=== PATIENT | female | born 1995 | race American Indian/Alaskan Native ===

== ENCOUNTER 2018-04-12 00:46 | Emergency (ER) | payer OTHER, SELFPAY ==
[2018-04-12] MEDS ORDERED: NA CHLORIDE 0.9% 1,000 ML ONE ×2 (01:29→03:34)
[2018-04-12] MEDS ORDERED: KETOROLAC 30 MG/ML INJ ONE (02:00)
[2018-04-12] MEDS ORDERED: PROMETHAZINE 25 MG/ML VIAL ONE (02:00)
[2018-04-12] MEDS ORDERED: PANTOPRAZOLE 40 MG INJ ONE (02:00)
[2018-04-12 02:16] LABS: Absolute Lymphocytes (CBC) 2.3 K/uL (0.7-4.9); Absolute Monocytes 0.4 K/uL (0.1-1.3); Absolute Neutrophil 4.2 K/uL (1.8-8.0); Basophils % 0.5 % (0-1.3); Eosinophils % 1.3 % (0-4.4); Hematocrit 38.1 % (36.0-45.0); Lymphocytes % 32.9 % (15.3-44.8); MCH 29.7 pg (27.0-35.0); MCV 86.2 fL (80-100); MPV 9.3 fL (7.6-11.3); Monocytes % 5.6 % (3.3-12.3); RBC Red Blood Cell Count 4.42 M/uL (3.86-4.86)
[2018-04-12 02:27] LABS: ALT/SGPT 30 U/L (12-78); AST/SGOT 12 U/L (15-37); Albumin 3.9 g/dL (3.4-5.0); Alkaline Phosphatase 59 U/L (45-117); BUN Blood Urea Nitrogen 17 mg/dL (7-18); Bicarbonate 23 mmol/L (21-32); Bilirubin Direct < 0.1 mg/dL (0-0.2); Bilirubin Total 0.2 mg/dL (0.2-1.0); Glucose Level 95 mg/dL (74-106); Lipase 307 U/L (73-393); Potassium 3.8 mmol/L (3.5-5.1); Protein, Total 8.1 g/dL (6.4-8.2); Sodium Level 141 mmol/L (136-145)
--- NOTE | 2018-04-12 03:27 | EDPHYS ---
Physician Documentation [facility] Name: Regina Gonzalez Age: 22 yrs Sex: Female : 1995 Arrival Date: 04/12/2018 Time: 00:46 Bed 18 Private MD: ED Physician Toi Rodriguez HPI: 04/12 01:51 This 22 yrs old Other Female presents to ER via Ambulatory with complaints of Vomiting, snw Weakness. 01:51 The patient presents to the emergency department with nausea, vomiting, diarrhea, snw abdominal pain. Onset: The symptoms/episode began/occurred suddenly, 4 day(s) ago, and became persistent. Possible causes: unknown, sick contacts, none. Associated signs and symptoms: The patient has no apparent associated signs or symptoms. Severity of symptoms: At their worst the symptoms were moderate. The patient has not experienced similar symptoms in the past. It is unknown whether or not the patient has recently seen a physician. pt with recent , not . 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 - Social history:: Smoking status: Patient uses tobacco products, denies chronic smoking, but will smoke occasionally. - Ebola Screening: : No symptoms or risks identified at this time. ROS: 01:50 Constitutional: Negative for fever, chills, and weight loss, Eyes: Negative for injury, snw pain, redness, and discharge, ENT: Negative for injury, pain, and discharge, Neck: Negative for injury, pain, and swelling, Cardiovascular: Negative for chest pain, palpitations, and edema, Respiratory: Negative for shortness of breath, cough, wheezing, and pleuritic chest pain. 01:50 Back: Negative for injury and pain, : Negative for injury, bleeding, discharge, and swelling, MS/Extremity: Negative for injury and deformity, Skin: Negative for injury, rash, and discoloration. 01:50 Abdomen/GI: Positive for abdominal pain, nausea, vomiting, and diarrhea. 01:50 Neuro: Positive for dizziness. Exam: 01:51 Constitutional: This is a well developed, well nourished patient who is awake, alert, snw and in no acute distress. Head/Face: Normocephalic, atraumatic. Eyes: Pupils equal round and reactive to light, extra-ocular motions intact. Lids and lashes normal. Conjunctiva and sclera are non-icteric and not injected. Cornea within normal limits. Periorbital areas with no swelling, redness, or edema. ENT: Nares patent. No nasal discharge, no septal abnormalities noted. Tympanic membranes are normal and external auditory canals are clear. Oropharynx with no redness, swelling, or masses, exudates, or evidence of obstruction, uvula midline. Mucous membranes moist. Neck: Trachea midline, no thyromegaly or masses palpated, and no cervical lymphadenopathy. Supple, full range of motion without nuchal rigidity, or vertebral point tenderness. No Meningismus. Chest/axilla: Normal chest wall appearance and motion. Nontender with no deformity. No lesions are appreciated. Cardiovascular: Regular rate and rhythm with a normal S1 and S2. No gallops, murmurs, or rubs. Normal PMI, no JVD. No pulse deficits. Respiratory: Lungs have equal breath sounds bilaterally, clear to auscultation and percussion. No rales, rhonchi or wheezes noted. No increased work of breathing, no retractions or nasal flaring. Abdomen/GI: Soft, non-tender, with normal bowel sounds. No distension or tympany. No guarding or rebound. No evidence of tenderness throughout. Back: No spinal tenderness. No costovertebral tenderness. Full range of motion. Skin: Warm, dry with normal turgor. Normal color with no rashes, no lesions, and no evidence of cellulitis. MS/ Extremity: Pulses equal, no cyanosis. Neurovascular intact. Full, normal range of motion. Neuro: Awake and alert, GCS 15, oriented to person, place, time, and situation. Cranial nerves II-XII grossly intact. Motor strength 5/5 in all extremities. Sensory grossly intact. Cerebellar exam normal. Normal gait. Vital Signs: 01:01 BP 150 / 100; Pulse 108; Resp 18; Temp 99(O); Pulse Ox 98% on R/A; Weight 99.79 kg; lp1 Height 5 ft. 4 in. (162.56 cm); Pain 3/10; 02:55 BP 150 / 80; Pulse 72; Resp 18; Pulse Ox 99% ; ea 02:58 BP 151 / 80; Pulse 78; Resp 18; Pulse Ox 99% ; ea 03:50 BP 140 / 78; Pulse 80; Resp 18; Pulse Ox 98% on R/A; ea 04:40 BP 138 / 70; Pulse 78; Resp 18; Temp 98; Pulse Ox 99% on R/A; Pain 0/10; ea 01:01 Body Mass Index 37.76 (99.79 kg, 162.56 cm) lp1 MDM: 00:54 Patient medically screened. denys 03:28 Data reviewed: vital signs, nurses notes. Data interpreted: Pulse oximetry: on room air snw is 99 %. Interpretation: normal. Counseling: I had a detailed discussion with the patient and/or guardian regarding: the historical points, exam findings, and any diagnostic results supporting the discharge/admit diagnosis, the presence of at least one elevated blood pressure reading (>120/80) during this emergency department visit, lab results, the need for outpatient follow up, to return to the emergency department if symptoms worsen or persist or if there are any questions or concerns that arise at home. Response to treatment: the patient's symptoms have mildly improved after treatment, and as a result, I will administer IV fluids, NS bolus, repeat. 10 00:49 Order name: Urine Culture snw 04/12 00:49 Order name: Urine Microscopic Only; Complete Time: 15:18 snw 04/12 01:02 Order name: Basic Metabolic Panel; Complete Time: 02:32 snw 04/12 01:02 Order name: CBC with Diff; Complete Time: 02:22 snw 04/12 01:02 Order name: Creatinine for Radiology; Complete Time: 02:32 snw 04/12 01:02 Order name: Hepatic Function; Complete Time: 02:32 snw 04/12 00:49 Order name: Urine Dipstick-Ancillary (obtain specimen); Complete Time: 03:17 snw 04/12 01:02 Order name: Lipase; Complete Time: 02:32 snw 04/12 03:18 Order name: Urine Dipstick--Ancillary (enter results); Complete Time: 15:18 ms 04/12 00:52 Order name: Urine Test (obtain specimen); Complete Time: 03:17 snw 04/12 01:02 Order name: IV Saline Lock; Complete Time: :48 snw 04/12 01:02 Order name: Labs collected and sent; Complete Time: :48 snw Administered Medications: 01:26 Drug: NS 0.9% 1000 ml Route: IV; Rate: 1 bolus; Site: right antecubital; ea 02:58 Follow up: Response: No adverse reaction; IV Status: Completed infusion; IV Intake: ea 1000ml 02:10 Drug: ProTONIX 40 mg Route: IVP; Site: right antecubital; ea 02:58 Follow up: Response: No adverse reaction ea 02:10 Drug: Phenergan 12.5 mg Route: IVP; Site: right antecubital; ea 02:58 Follow up: BP 151 / 80; Pulse 78 bpm; Resp 18 bpm; Pulse Ox 99% ea 03:16 Drug: TORadol 30 mg Route: IVP; Site: right antecubital; ea 04:40 Follow up: Response: No adverse reaction; Pain is decreased ea 03:29 Drug: NS 0.9% 1000 ml Route: IV; Rate: 1 bolus; Site: right antecubital; ao 04:40 Follow up: Response: No adverse reaction; IV Status: Completed infusion; IV Intake: ea 1000ml Disposition: 07:27 Co-signature as Attending Physician, Toi Rodriguez MD I agree with the assessment and denys plan of care. Disposition: 04/12/18 03:26 Discharged to Home. Impression: Vomiting, unspecified, Diarrhea, unspecified, Volume depletion. - Condition is Stable. - Discharge Instructions: Food Choices to Help Relieve Diarrhea, Adult, Diarrhea, Adult, Clear Liquid Diet, Adult, Nausea and Vomiting, Adult, Rehydration, Adult. - Prescriptions for Bentyl 20 mg Oral Tablet - take 1 tablet by ORAL route every 6 hours As needed; 20 tablet. Zofran 4 mg Oral Tablet - take 1 tablet by ORAL route every 12 hours As needed; 20 tablet. - Work release form, Medication Reconciliation Form, Thank You Letter, Antibiotic Education, Prescription Opioid Use form. - Follow up: Private Physician; When: 2 - 3 days; Reason: Recheck today's complaints, Continuance of care, Re-evaluation by your physician. Follow up: Emergency Department; When: As needed; Reason: Worsening of condition. Signatures: Dispatcher [employer] EDIA Toi Rodriguez MD MD cha Therrien, Shelly, SECURITIES CLERK-C SECURITIES CLERK-Csnw Noemi Leach, RN RN lp1 Arjun Harden, RN RN ao Alisha Price, RN RN ea Corrections: (The following items were deleted from the chart) 04:44 03:26 04/12/2018 03:26 Discharged to Home. Impression: Vomiting, unspecified; Diarrhea, ea unspecified; Volume depletion. Condition is Stable. Discharge Instructions: Food Choices to Help Relieve Diarrhea, Adult, Diarrhea, Adult, Clear Liquid Diet, Adult, Nausea and Vomiting, Adult, Rehydration, Adult. Prescriptions for Bentyl 20 mg Oral Tablet - take 1 tablet by ORAL route every 6 hours As needed; 20 tablet, Zofran 4 mg Oral Tablet - take 1 tablet by ORAL route every 12 hours As needed; 20 tablet. and Forms are Work release form, Medication Reconciliation Form, Thank You Letter, Antibiotic Education, Prescription Opioid Use. Follow up: Private Physician; When: 2 - 3 days; Reason: Recheck today's complaints, Continuance of care, Re-evaluation by your physician. Follow up: Emergency Department; When: As needed; Reason: Worsening of condition. snw
--- NOTE | 2018-04-12 03:27 | ER ---
Nurse's Notes [facility] Name: Regina Gonzalez Age: 22 yrs Sex: Female : 1995 Arrival Date: 04/12/2018 Time: 00:46 Bed 18 Private MD: Diagnosis: Vomiting, unspecified;Diarrhea, unspecified;Volume depletion Presentation: 04/12 01:01 Presenting complaint: Patient states: Vomiting x 4-5 days, states feeling "like I might lp1 pass out at any time"; denies any diarrhea, fever. Transition of care: patient was not received from another setting of care. Onset of symptoms was April 12, 2018. Risk Assessment: Do you want to hurt yourself or someone else? Patient reports no desire to harm self or others. Initial Sepsis Screen: Does the patient meet any 2 criteria? No. Patient's initial sepsis screen is negative. Does the patient have a suspected source of infection? No. Patient's initial sepsis screen is negative. Care prior to arrival: None. 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 - Social history:: Smoking status: Patient uses tobacco products, denies chronic smoking, but will smoke occasionally. - Ebola Screening: : No symptoms or risks identified at this time. Screenin:02 Abuse screen: Denies threats or abuse. Denies injuries from another. Nutritional lp1 screening: No deficits noted. Tuberculosis screening: No symptoms or risk factors identified. Fall Risk None identified. Assessment: 01:15 General: Appears in no apparent distress. Behavior is calm, cooperative, appropriate ea for age. Pain: Denies pain. Neuro: Level of Consciousness is awake, alert, obeys commands, Oriented to person, place, time, situation, Appropriate for age. Cardiovascular: Heart tones S1 S2 present Patient's skin is warm and dry. Respiratory: Airway is patent Respiratory effort is even, unlabored, Respiratory pattern is regular, symmetrical, Breath sounds are clear bilaterally. GI: Abdomen is non-distended, Bowel sounds present X 4 quads. Derm: Skin is pink, warm \\T\\ dry. 02:55 Reassessment: Patient and/or family updated on plan of care and expected duration. Pain ea level reassessed. Patient is alert, oriented x 3, equal unlabored respirations, skin warm/dry/pink. 03:50 Reassessment: Patient and/or family updated on plan of care and expected duration. Pain ea level reassessed. Patient is alert, oriented x 3, equal unlabored respirations, skin warm/dry/pink. Awaiting on IV fluids to complete. 04:38 Reassessment: Patient and/or family updated on plan of care and expected duration. Pain ea level reassessed. Patient is alert, oriented x 3, equal unlabored respirations, skin warm/dry/pink. Discharge instructions given to patient, verbalized the understanding of instruction. Vital Signs: 01:01 BP 150 / 100; Pulse 108; Resp 18; Temp 99(O); Pulse Ox 98% on R/A; Weight 99.79 kg; lp1 Height 5 ft. 4 in. (162.56 cm); Pain 3/10; 02:55 BP 150 / 80; Pulse 72; Resp 18; Pulse Ox 99% ; ea 02:58 BP 151 / 80; Pulse 78; Resp 18; Pulse Ox 99% ; ea 03:50 BP 140 / 78; Pulse 80; Resp 18; Pulse Ox 98% on R/A; ea 04:40 BP 138 / 70; Pulse 78; Resp 18; Temp 98; Pulse Ox 99% on R/A; Pain 0/10; ea 01:01 Body Mass Index 37.76 (99.79 kg, 162.56 cm) lp1 ED Course: 00:30 Inserted saline lock: 18 gauge in right antecubital area, using aseptic technique. ea Blood collected. 00:46 Patient arrived in ED. ds1 00:46 Scarlet Soria FNP-C [facility]. snw 00:46 Toi Rodriguez MD is Attending Physician. snw 01:01 Triage completed. lp1 01:02 Arm band placed on left wrist. lp1 01:10 Alisha Price, BRANDON is Primary Nurse. ea 01:15 Patient has correct armband on for positive identification. Bed in low position. Call ea light in reach. Side rails up X2. 01:15 No provider procedures requiring assistance completed. ea 04:40 IV discontinued, intact, bleeding controlled, No redness/swelling at site. Pressure ea dressing applied. Administered Medications: 01:26 Drug: NS 0.9% 1000 ml Route: IV; Rate: 1 bolus; Site: right antecubital; ea 02:58 Follow up: Response: No adverse reaction; IV Status: Completed infusion; IV Intake: ea 1000ml 02:10 Drug: ProTONIX 40 mg Route: IVP; Site: right antecubital; ea 02:58 Follow up: Response: No adverse reaction ea 02:10 Drug: Phenergan 12.5 mg Route: IVP; Site: right antecubital; ea 02:58 Follow up: BP 151 / 80; Pulse 78 bpm; Resp 18 bpm; Pulse Ox 99% ea 03:16 Drug: TORadol 30 mg Route: IVP; Site: right antecubital; ea 04:40 Follow up: Response: No adverse reaction; Pain is decreased ea 03:29 Drug: NS 0.9% 1000 ml Route: IV; Rate: 1 bolus; Site: right antecubital; ao 04:40 Follow up: Response: No adverse reaction; IV Status: Completed infusion; IV Intake: ea 1000ml Intake: 02:58 IV: 1000ml; Total: 1000ml. ea 04:40 IV: 1000ml; Total: 2000ml. ea Outcome: 03:26 Discharge ordered by MD. snw 04:39 Discharged to home ambulatory, with family. ea 04:39 Condition: improved 04:39 Discharge instructions given to patient, Instructed on discharge instructions, follow up and referral plans. medication usage, Demonstrated understanding of instructions, follow-up care, medications, Prescriptions given X 2. 04:44 Patient left the ED. ea Signatures: Scarlet Soria, CONTROLLER MECHANIC-C CONTROLLER MECHANIC-CsnDebra Schmitt Laura RN RN lp1 Arjun Harden RN Alisha Machado RN RN ea
[2018-04-12 04:19] LABS: Urine Blood 3+ (NEG); Urine Glucose NEGATIVE (NEG); Urine Protein NEGATIVE (NEG); Urine Specific Gravity <1.005 (1.005-1.030)
[2018-04-12 04:20] LABS: Urine Culture Reflex Order NOT NEEDED
[2018-04-12 04:21] LABS: Urine Bacteria 20-50 /HPF (<20); Urine RBC <5 /HPF (NONE SEEN)
[2018-04-12 04:53] VITALS: BP 138/70; TEMP 98; O2SAT 99
== END 2018-04-12 04:44 | disposition home or self-care (01) ==
LOC: ER 00:46
DX: E86.9 Volume depletion, unspecified (principal); R19.7 Diarrhea, unspecified; Z72.0 Tobacco use
CPT/HCPCS: 36415; 80048; 80076; 81003; 81015; 83690; 85025; 87086; 87088; 96361; 96374; 96375; 99284; C9113; J2550; J7030

== ENCOUNTER 2018-04-13 17:24 | Emergency (ER) | payer OTHER ==
[2018-04-13] MEDS ORDERED: SUCRALFATE 1GM/10ML UCUP PO ONE (18:00)
--- NOTE | 2018-04-13 18:05 | RAD REPORT ---
EXAM DESCRIPTION: RAD - Chest Single View - 04/13/2018 5:57 pm CLINICAL HISTORY: CHEST PAIN Chest pain. COMPARISON: Chest Single View dated 04/27/2017 FINDINGS: Portable technique limits examination quality. The lungs are grossly clear. The heart is normal in size. No displaced fractures. IMPRESSION: No acute intrathoracic process suspected.
[2018-04-13 18:41] LABS: Absolute Lymphocytes (CBC) 1.6 K/uL (0.7-4.9); Absolute Monocytes 0.4 K/uL (0.1-1.3); Absolute Neutrophil 5.9 K/uL (1.8-8.0); Basophils % 0.4 % (0-1.3); Eosinophils % 0.7 % (0-4.4); MCH 29.5 pg (27.0-35.0); MCV 86.1 fL (80-100); MPV 8.7 fL (7.6-11.3); Monocytes % 4.9 % (3.3-12.3); RBC Red Blood Cell Count 4.29 M/uL (3.86-4.86)
[2018-04-13 19:05] LABS: BUN Blood Urea Nitrogen 9 mg/dL (7-18); Bicarbonate 25 mmol/L (21-32); Glucose Level 96 mg/dL (74-106); Potassium 3.8 mmol/L (3.5-5.1); Sodium Level 143 mmol/L (136-145); Thyroid Stimulating Hormone 0.737 uIU/mL (0.360-3.740); Troponin (Emerg Dept Use Only) < 0.02 ng/mL (0.0-0.045)
--- NOTE | 2018-04-13 19:08 | EDPHYS ---
Physician Documentation [facility] Name: Regina Gonzalez Age: 22 yrs Sex: Female : 1995 Arrival Date: 04/13/2018 Time: 17:25 Bed 8 Private MD: ED Physician Marvin Means HPI: 04/13 18:56 This 22 yrs old Other Female presents to ER via EMS with complaints of Chest Pain, gs Nausea/Vomiting. 18:56 The patient or guardian reports chest pain that is located primarily in the epigastric gs area. The pain radiates to chest. Associated signs and symptoms:. The chest pain is described as burning. Duration: The patient or guardian reports a single episode, that is still ongoing, but improving. Modifying factors: the symptoms are aggravated by breathing. Severity of pain: At its worst the pain was moderate in the emergency department the pain is unchanged. The patient has been recently seen by a physician: The patient has been recently seen at the [facility] Emergency Department, yesterday. Historical: - Allergies: 17:29 No Known Allergies; hb - Home Meds: 17:29 control [Active]; hb - PSHx: 17:29 Cholecystectomy; hb - Immunization history:: Adult Immunizations up to date. - Social history:: Smoking status: Patient/guardian denies using tobacco. - Ebola Screening: : No symptoms or risks identified at this time. ROS: 18:56 All other systems are negative. gs Exam: 18:56 Head/Face: Normocephalic, atraumatic. Eyes: Pupils equal round and reactive to light, gs extra-ocular motions intact. Lids and lashes normal. Conjunctiva and sclera are non-icteric and not injected. Cornea within normal limits. Periorbital areas with no swelling, redness, or edema. ENT: Nares patent. No nasal discharge, no septal abnormalities noted. Tympanic membranes are normal and external auditory canals are clear. Oropharynx with no redness, swelling, or masses, exudates, or evidence of obstruction, uvula midline. Mucous membranes moist. Neck: Trachea midline, no thyromegaly or masses palpated, and no cervical lymphadenopathy. Supple, full range of motion without nuchal rigidity, or vertebral point tenderness. No Meningismus. Chest/axilla: Normal chest wall appearance and motion. Nontender with no deformity. No lesions are appreciated. Cardiovascular: Regular rate and rhythm with a normal S1 and S2. No gallops, murmurs, or rubs. Normal PMI, no JVD. No pulse deficits. Respiratory: Lungs have equal breath sounds bilaterally, clear to auscultation and percussion. No rales, rhonchi or wheezes noted. No increased work of breathing, no retractions or nasal flaring. Abdomen/GI: Soft, non-tender, with normal bowel sounds. No distension or tympany. No guarding or rebound. No evidence of tenderness throughout. Back: No spinal tenderness. No costovertebral tenderness. Full range of motion. Skin: Warm, dry with normal turgor. Normal color with no rashes, no lesions, and no evidence of cellulitis. MS/ Extremity: Pulses equal, no cyanosis. Neurovascular intact. Full, normal range of motion. Neuro: Awake and alert, GCS 15, oriented to person, place, time, and situation. Cranial nerves II-XII grossly intact. Motor strength 5/5 in all extremities. Sensory grossly intact. Cerebellar exam normal. Normal gait. 18:56 Constitutional: The patient appears alert, awake. 18:56 ECG was reviewed by the Attending Physician. Vital Signs: 17:26 BP 174 / 101; Pulse 77; Resp 16; Temp 98.7(O); Pulse Ox 100% on R/A; Pain 5/10; hb 18:30 BP 140 / 96; Pulse 79; Resp 16; Pulse Ox 100% on R/A; hb 19:00 BP 140 / 89; Pulse 77; Resp 18; Pulse Ox 100% on R/A; lp1 19:30 BP 121 / 71; Pulse 73; Resp 19; Pulse Ox 99% on R/A; Pain 3/10; lp1 MDM: 17:51 Patient medically screened. gs 18:56 Differential diagnosis: coronary artery disease chest wall pain, gastroesophageal gs reflux disease (GERD), pulmonary embolus. Data reviewed: vital signs, nurses notes. Counseling: I had a detailed discussion with the patient and/or guardian regarding: the historical points, exam findings, and any diagnostic results supporting the discharge/admit diagnosis, the presence of at least one elevated blood pressure reading (>120/80) during this emergency department visit, the need for outpatient follow up. Response to treatment: the patient's symptoms have markedly improved after treatment, and as a result, I will discharge patient. Special discussion: I have referred the patient to see his PCP for further evaluation of high blood pressure. 04/13 17:50 Order name: Basic Metabolic Panel; Complete Time: 19:07 04/13 17:50 Order name: CBC with Diff; Complete Time: 18:55 04/13 17:50 Order name: Troponin (emerg Dept Use Only); Complete Time: 19:07 04/13 17:50 Order name: XRAY Chest (1 view); Complete Time: 18:24 04/13 17:50 Order name: D-Dimer; Complete Time: 18:55 04/13 17:50 Order name: TSH; Complete Time: 19:07 04/13 17:50 Order name: EKG; Complete Time: 17:51 04/13 17:50 Order name: Cardiac monitoring; Complete Time: 18:06 04/13 17:50 Order name: EKG - Nurse/Tech; Complete Time: 18:06 04/13 17:50 Order name: IV Saline Lock; Complete Time: 18:06 04/13 17:50 Order name: Labs collected and sent; Complete Time: 18:06 04/13 17:50 Order name: O2 Per Protocol; Complete Time: 18:06 04/13 17:50 Order name: O2 Sat Monitoring; Complete Time: 18:06 gs EC:56 Rate is 73 beats/min. Rhythm is regular. ND interval is normal. QRS interval is normal. gs No Q waves. T waves are Normal. No ST changes noted. Clinical impression: Normal ECG. Interpreted by me. Administered Medications: 18:10 Drug: CarafATE 1 grams Route: PO; hb Disposition: 04/13/18 19:08 Discharged to Home. Impression: Essential (primary) hypertension, Chest pain, unspecified. - Condition is Stable. - Discharge Instructions: Nonspecific Chest Pain, Managing Your Hypertension. - Prescriptions for Pepcid 20 mg Oral Tablet - take 1 tablet by ORAL route every 12 hours .; 60 tablet. Triamterene- Hydrochlorothiazid 37.5-25 mg Oral Tablet - take 1 tablet by ORAL route once daily; 15 tablet. - Medication Reconciliation Form, Thank You Letter, Antibiotic Education, Prescription Opioid Use form. - Follow up: Private Physician; When: 2 - 3 days; Reason: Re-evaluation by your physician. Signatures: Dispatcher [employer] EDNoemi Tee RN RN lp1 Juani Orosco RN RN Marvin Means MD MD gs Corrections: (The following items were deleted from the chart) 19:50 19:08 04/13/2018 19:08 Discharged to Home. Impression: Essential (primary) lp1 hypertension; Chest pain, unspecified. Condition is Stable. Forms are Medication Reconciliation Form, Thank You Letter, Antibiotic Education, Prescription Opioid Use. Follow up: Private Physician; When: 2 - 3 days; Reason: Re-evaluation by your physician. gs
--- NOTE | 2018-04-13 19:08 | ER ---
Nurse's Notes [facility] Name: Regina Gonzalez Age: 22 yrs Sex: Female : 1995 Arrival Date: 04/13/2018 Time: 17:25 Bed 8 Private MD: Diagnosis: Essential (primary) hypertension;Chest pain, unspecified Presentation: 04/13 17:26 Presenting complaint: EMS states: N/V x 1 week, chest pressure and mild SOB x 2-3 days. hb Transition of care: patient was not received from another setting of care. Onset of symptoms is unknown. Risk Assessment: Do you want to hurt yourself or someone else? Patient reports no desire to harm self or others. Initial Sepsis Screen: Does the patient meet any 2 criteria? No. Patient's initial sepsis screen is negative. Does the patient have a suspected source of infection? No. Patient's initial sepsis screen is negative. Care prior to arrival: None. 17:26 Method Of Arrival: EMS: [facility] hb 17:26 Acuity: COLIN 3 hb Historical: - Allergies: 17:29 No Known Allergies; hb - Home Meds: 17:29 control [Active]; hb - PSHx: 17:29 Cholecystectomy; hb - Immunization history:: Adult Immunizations up to date. - Social history:: Smoking status: Patient/guardian denies using tobacco. - Ebola Screening: : No symptoms or risks identified at this time. Screenin:29 Abuse screen: Denies threats or abuse. Denies injuries from another. Nutritional hb screening: No deficits noted. Tuberculosis screening: No symptoms or risk factors identified. Fall Risk None identified. Assessment: 17:30 General: Appears in no apparent distress. Behavior is calm, cooperative. Pain: Pain hb does not radiate. Pain currently is 5 out of 10 on a pain scale. Quality of pain is described as pressure, Pain began 2-3 days ago. Neuro: Level of Consciousness is awake, alert, obeys commands, Oriented to person, place, time, situation. Cardiovascular: Capillary refill < 3 seconds Patient's skin is warm and dry. Respiratory: Airway is patent Trachea midline Respiratory effort is even, unlabored, Respiratory pattern is regular, symmetrical, Breath sounds are clear bilaterally. GI: Reports nausea. : No signs and/or symptoms were reported regarding the genitourinary system. EENT: No signs and/or symptoms were reported regarding the EENT system. Derm: Skin is pink, warm \T\ dry. Musculoskeletal: No signs and/or symptoms reported regarding the musculoskeletal system. 18:30 Reassessment: Patient appears in no apparent distress at this time. No changes from hb previously documented assessment. Patient and/or family updated on plan of care and expected duration. Pain level reassessed. Patient is alert, oriented x 3, equal unlabored respirations, skin warm/dry/pink. 19:30 Reassessment: Patient appears in no apparent distress at this time. Patient is alert, lp1 oriented x 3, equal unlabored respirations, skin warm/dry/pink. Patient states feeling better. Vital Signs: 17:26 BP 174 / 101; Pulse 77; Resp 16; Temp 98.7(O); Pulse Ox 100% on R/A; Pain 5/10; hb 18:30 BP 140 / 96; Pulse 79; Resp 16; Pulse Ox 100% on R/A; hb 19:00 BP 140 / 89; Pulse 77; Resp 18; Pulse Ox 100% on R/A; lp1 19:30 BP 121 / 71; Pulse 73; Resp 19; Pulse Ox 99% on R/A; Pain 3/10; lp1 ED Course: 17:25 Patient arrived in ED. hb 17:28 Triage completed. hb 17:29 Arm band placed on right wrist. hb 17:30 Patient has correct armband on for positive identification. Placed in gown. Bed in low hb position. Call light in reach. Side rails up X 1. radiation monitor on. Pulse ox on. NIBP on. 17:35 Marvin Means MD is Attending Physician. gs 17:37 EKG done, by emergency care tech. reviewed by Marvin Means MD. sm3 17:57 XRAY Chest (1 view) In Process Unspecified. EDMS 17:57 X-ray completed. Portable x-ray completed in exam room. Patient tolerated procedure ml well. 18:00 Initial lab(s) drawn, by me, sent to lab. Inserted saline lock: 20 gauge in left dh3 antecubital area, using aseptic technique. Blood collected. 18:18 Juani Orosco, BRANDON is Primary Nurse. hb 18:32 Lab(s) recollected, by me, sent to lab. [facility] 19:49 No provider procedures requiring assistance completed. IV discontinued, No lp1 redness/swelling at site. Pressure dressing applied. Patient maintains SpO2 saturation greater than 95% on room air. Administered Medications: 18:10 Drug: CarafATE 1 grams Route: PO; hb Outcome: 19:08 Discharge ordered by . 19:49 Discharged to home via wheelchair, with family. [facility] 19:49 Condition: good 19:49 Discharge instructions given to patient, Instructed on discharge instructions, follow up and referral plans. medication usage, Demonstrated understanding of instructions, follow-up care, medications, Prescriptions given X 2. 19:50 Patient left the ED. 1 Signatures: Dispatcher [employer] EDMS Anne Farnsworth Laura, BRANDON RN [facility] Juani Orosco, BRANDON TAYLOR Ryan, Nereyda 3 Marvin Means MD MD Gwendolyn Espitia 3
[2018-04-13 19:54] VITALS: TEMP 98.7
[2018-04-13 19:57] VITALS: BP 121/71; O2SAT 99
--- NOTE | 2018-04-14 07:54 | EKG ---
Test Date: 2018-04-13 Test Time: 17:30:24 Water Treatment Technician: NEIL MEASUREMENT RESULTS: Intervals: Rate: 73 NV: 128 QRSD: 78 QT: 364 QTc: 401 [place]: P: 28 NV: 128 QRS: -3 T: -2 INTERPRETIVE STATEMENTS: Normal sinus rhythm Normal ECG Compared to ECG 04/27/2017 21:26:14 No significant changes Electronically Signed On 04-14-18 07:54:09 CDT by Gurdeep Herman
== END 2018-04-13 19:50 | disposition home or self-care (01) ==
LOC: ER 17:24
DX: I10 Essential (primary) hypertension (principal)
CPT/HCPCS: 36415; 71045; 80048; 84443; 84484; 85025; 85379; 93005; 99285

== ENCOUNTER 2018-04-16 19:01 | Emergency (ER) | payer OTHER ==
[2018-04-16] MEDS ORDERED: NA CHLORIDE 0.9% 1,000 ML ONE (19:52)
[2018-04-16 19:57] LABS: Absolute Lymphocytes (CBC) 2.5 K/uL (0.7-4.9); Absolute Monocytes 0.5 K/uL (0.1-1.3); Absolute Neutrophil 3.9 K/uL (1.8-8.0); Basophils % 0.7 % (0-1.3); Eosinophils % 1.4 % (0-4.4); Hematocrit 42.5 % (36.0-45.0); Lymphocytes % 35.7 % (15.3-44.8); MCH 29.5 pg (27.0-35.0); MPV 8.7 fL (7.6-11.3); Monocytes % 7.6 % (3.3-12.3)
[2018-04-16 20:00] LABS: Protime INR 1.16
[2018-04-16 20:17] LABS: ALT/SGPT 38 U/L (12-78); AST/SGOT 12 U/L (15-37); Albumin 4.3 g/dL (3.4-5.0); Alkaline Phosphatase 66 U/L (45-117); BUN Blood Urea Nitrogen 15 mg/dL (7-18); Bicarbonate 20 mmol/L (21-32); Bilirubin Direct < 0.1 mg/dL (0-0.2); Bilirubin Total 0.3 mg/dL (0.2-1.0); Glucose Level 90 mg/dL (74-106); Lipase 155 U/L (73-393); Magnesium 2.5 mg/dL (1.8-2.4); NT PRO-BNP 7 pg/mL (<125); Potassium 3.6 mmol/L (3.5-5.1); Protein, Total 8.6 g/dL (6.4-8.2); Sodium Level 138 mmol/L (136-145); Troponin (Emerg Dept Use Only) < 0.02 ng/mL (0.0-0.045)
[2018-04-16 21:02] LABS: Urine Blood NEGATIVE (NEG); Urine Glucose NEGATIVE (NEG); Urine Protein 1+ (NEG)
--- NOTE | 2018-04-16 21:40 | RAD REPORT ---
EXAM DESCRIPTION: CT - Chest For Pe Angio - 04/16/2018 9:10 pm CLINICAL HISTORY: Chest pain, tachycardia, shortness of breath COMPARISON: Chest films same date, PE study April 2017 TECHNIQUE: Dynamically enhanced 3 mm thick images of the chest were obtained during administration o f approximately 150mL Isovue 370 IV contrast. Coronal and oblique MIP reconstruction images were gene rated and reviewed. Exam utilizes a protocol to evaluate the pulmonary arterial tree. All CT scans are performed using dose optimization technique as appropriate and may include automated exposure control or mA/KV adjustment according to patient size. FINDINGS: No pulmonary emboli are identified. The aorta as imaged shows no acute or suspicious finding. No pericardial thickening or effusion. No infiltrate or mass in the lung parenchyma. No pleural effusion or pleural thickening. No mediastinal or hilar suspicious masses. No chest wall masses or abnormal axillary lymphadenopathy. IMPRESSION: No pulmonary emboli identified. No other significant or suspicious findings.
--- NOTE | 2018-04-16 22:21 | RAD REPORT ---
EXAM DESCRIPTION: RAD - Chest Single View - 04/16/2018 9:44 pm CLINICAL HISTORY: Chest pain COMPARISON: April 13 TECHNIQUE: AP portable chest image was obtained 2003 hours . FINDINGS: Lungs are clear. Heart and vasculature are normal. No measurable pleural effusion and no p neumothorax. No acute bony abnormality seen. No acute aortic findings suspected. IMPRESSION: No acute cardiopulmonary process. No significant interval change.
[2018-04-16 23:59] LABS: Barbiturates NEGATIVE (NEGATIVE); Benzodiazepines NEGATIVE (NEGATIVE); Cocaine NEGATIVE (NEGATIVE); METHAMPHETAM NEGATIVE (NEGATIVE); Methadone NEGATIVE (NEGATIVE); Opiates NEGATIVE (NEGATIVE); Phencyclidine NEGATIVE (NEGATIVE); THC Cannibis NEGATIVE (NEGATIVE)
--- NOTE | 2018-04-17 00:14 | EDPHYS ---
Physician Documentation [facility] Name: Regina Gonzalez Age: 22 yrs Sex: Female : 1995 Arrival Date: 04/16/2018 Time: 19:02 Bed 16 Private MD: Nitin Velasquez ED Physician Marvin Means HPI: 04/17 00:05 This 22 yrs old Other Female presents to ER via Ambulatory with complaints of gs Palpitations. 00:05 The patient presents with a history of heart racing. Onset: The symptoms/episode gs began/occurred today. Duration: The patient or guardian reports a single episode, that is still ongoing. Modifying factors: The symptoms are aggravated by nothing. The symptoms are alleviated by nothing. Associated signs and symptoms: Pertinent positives: chest pain, Pertinent negatives: cough, fever. Severity of symptoms: At their worst the symptoms were moderate in the emergency department the symptoms are unchanged. The patient has experienced similar episodes in the past, a few times. The patient has been recently seen at the [facility] Emergency Department, last week. PERL DEVELOPER: 04/16 19:10 LMP 04/12/2018 aj Historical: - Allergies: 19:10 No Known Allergies; aj - Home Meds: 19:10 None [Active]; aj - PMHx: 19:10 Hypertension; aj - PSHx: 19:10 Cholecystectomy; aj - Immunization history:: Adult Immunizations up to date. - Social history:: Smoking status: Patient/guardian denies using tobacco. - Ebola Screening: : Patient negative for fever greater than or equal to 101.5 degrees Fahrenheit, and additional compatible Ebola Virus Disease symptoms Patient denies exposure to infectious person Patient denies travel to an Ebola-affected area in the 21 days before illness onset No symptoms or risks identified at this time. ROS: 04/17 00:05 All other systems are negative. gs Exam: 00:05 Head/Face: Normocephalic, atraumatic. Eyes: Pupils equal round and reactive to light, gs extra-ocular motions intact. Lids and lashes normal. Conjunctiva and sclera are non-icteric and not injected. Cornea within normal limits. Periorbital areas with no swelling, redness, or edema. ENT: Nares patent. No nasal discharge, no septal abnormalities noted. Tympanic membranes are normal and external auditory canals are clear. Oropharynx with no redness, swelling, or masses, exudates, or evidence of obstruction, uvula midline. Mucous membranes moist. Neck: Trachea midline, no thyromegaly or masses palpated, and no cervical lymphadenopathy. Supple, full range of motion without nuchal rigidity, or vertebral point tenderness. No Meningismus. Chest/axilla: Normal chest wall appearance and motion. Nontender with no deformity. No lesions are appreciated. Respiratory: Lungs have equal breath sounds bilaterally, clear to auscultation and percussion. No rales, rhonchi or wheezes noted. No increased work of breathing, no retractions or nasal flaring. Abdomen/GI: Soft, non-tender, with normal bowel sounds. No distension or tympany. No guarding or rebound. No evidence of tenderness throughout. Back: No spinal tenderness. No costovertebral tenderness. Full range of motion. Skin: Warm, dry with normal turgor. Normal color with no rashes, no lesions, and no evidence of cellulitis. MS/ Extremity: Pulses equal, no cyanosis. Neurovascular intact. Full, normal range of motion. Neuro: Awake and alert, GCS 15, oriented to person, place, time, and situation. Cranial nerves II-XII grossly intact. Motor strength 5/5 in all extremities. Sensory grossly intact. Cerebellar exam normal. Normal gait. 00:05 Constitutional: The patient appears alert, awake. 00:05 Cardiovascular: Rate: tachycardic, Rhythm: regular, Pulses: no pulse deficits are appreciated. 00:05 ECG was reviewed by the Attending Physician. Vital Signs: 04/16 19:10 BP 151 / 104; Pulse 146; Resp 20; Temp 98.7; Pulse Ox 97% on R/A; Weight 95.71 kg; aj Height 5 ft. 4 in. (162.56 cm); 19:15 BP 135 / 99; Pulse 136; Resp 20 S; Pulse Ox 97% on R/A; cc3 20:08 BP 138 / 90; Pulse 105; Resp 20 S; Pulse Ox 100% on R/A; cc3 21:33 BP 120 / 79; Pulse 113; Resp 15 S; Pulse Ox 98% on R/A; cc3 22:45 BP 123 / 86; Pulse 105; Resp 16 S; Pulse Ox 99% on R/A; cc3 23:30 BP 124 / 80; Pulse 104; Resp 19 S; Pulse Ox 98% on R/A; 3 04/17 00:30 BP 112 / 83; Pulse 103; Resp 17 S; Pulse Ox 98% on R/A; Pain 0/10; 3 04/16 19:10 Body Mass Index 36.22 (95.71 kg, 162.56 cm) aj MDM: 04/16 19:24 Patient medically screened. 04/17 00:05 Differential diagnosis: arrythmia, dehydration, stress disorder. Data reviewed: vital gs signs, nurses notes. Response to treatment: the patient's symptoms have markedly improved after treatment, and as a result, I will discharge patient. 04/16 19:40 Order name: Basic Metabolic Panel; Complete Time: 20:33 04/16 19:40 Order name: CBC with Diff; Complete Time: 20:33 04/16 19:40 Order name: LFT's; Complete Time: 20:33 04/16 19:40 Order name: Magnesium; Complete Time: 20:33 04/16 19:40 Order name: NT PRO-BNP; Complete Time: 20:33 04/16 19:40 Order name: PT-INR; Complete Time: 20:33 04/16 19:40 Order name: Troponin (emerg Dept Use Only); Complete Time: 20:33 04/16 19:40 Order name: XRAY Chest (1 view); Complete Time: 22:23 04/16 19:40 Order name: CT Chest For PE Angio; Complete Time: 22:23 04/16 19:41 Order name: Lipase; Complete Time: 20:33 04/16 20:53 Order name: Urine Dipstick--Ancillary (enter results); Complete Time: 21:07 04/16 20:53 Order name: Urine --Ancillary (enter results); Complete Time: 21:07 04/16 23:05 Order name: Urine Drug Screen; Complete Time: 00:05 04/16 19:40 Order name: EKG; Complete Time: 19:41 04/16 19:40 Order name: Cardiac monitoring; Complete Time: 19:43 04/16 19:40 Order name: EKG - Nurse/Tech; Complete Time: 19:43 04/16 19:40 Order name: IV Saline Lock; Complete Time: 19:43 gs 04/16 19:40 Order name: Labs collected and sent; Complete Time: 19:43 gs 04/16 19:40 Order name: O2 Per Protocol; Complete Time: 19:43 gs 04/16 19:40 Order name: O2 Sat Monitoring; Complete Time: 19:43 gs EC:05 Rate is 159 beats/min. Rhythm is regular. [place] interval is normal. QRS interval is gs normal. T waves are Normal. Clinical impression: Atrial Flutter. Interpreted by me. Administered Medications: 04/16 19:45 Drug: NS 0.9% 1000 ml Route: IV; Rate: 1 bolus; Site: left antecubital; cc3 21:00 Follow up: Response: No adverse reaction; IV Status: Completed infusion; IV Intake: cc3 1000ml 04/17 00:25 Drug: Metoprolol 25 mg Route: PO; cc3 00:43 Follow up: Response: No adverse reaction cc3 Disposition: 04/17/18 00:13 Discharged to Home. Impression: Palpitations, Typical atrial flutter. - Condition is Stable. - Discharge Instructions: Palpitations, Atrial Flutter. - Prescriptions for Metoprolol Tartrate 25 mg Oral Tablet - take 1 tablet by ORAL route 2 times per day with a meal; 30 tablet. - Medication Reconciliation Form, Thank You Letter, Antibiotic Education, Prescription Opioid Use form. - Follow up: Private Physician; When: 2 - 3 days; Reason: Re-evaluation by your physician. Signatures: Dispatcher [employer] [facility] Opal Almaraz RN RN aj Starr, Gregory, MD MD gs Cordel, Charlene cc3 Corrections: (The following items were deleted from the chart) 04/16 19:55 19:41 Abdomen Limited+US.RAD.BRZ ordered. [facility] 04/17 00:43 00:13 04/17/2018 00:13 Discharged to Home. Impression: Palpitations; Typical atrial cc3 flutter. Condition is Stable. Forms are Medication Reconciliation Form, Thank You Letter, Antibiotic Education, Prescription Opioid Use. Follow up: Private Physician; When: 2 - 3 days; Reason: Re-evaluation by your physician.
--- NOTE | 2018-04-17 00:14 | ER ---
Nurse's Notes [facility] Name: Regina Gonzalez Age: 22 yrs Sex: Female : 1995 Arrival Date: 04/16/2018 Time: 19:02 Bed 16 Private MD: Nitin Velasquez Diagnosis: Palpitations;Typical atrial flutter Presentation: 04/16 19:07 Presenting complaint: Patient states: "I have been having a rapid heart rate for a few aj days and my blood pressure has been going up, I have been here twice for it and saw my physician for it as well." Patient is tearful in triage and appears anxious. Denies chest pain. Transition of care: patient was not received from another setting of care. Onset of symptoms was March 29, 2018. Risk Assessment: Do you want to hurt yourself or someone else? Patient reports no desire to harm self or others. Initial Sepsis Screen: Does the patient meet any 2 criteria? HR > 90 bpm. Does the patient have a suspected source of infection? No. Patient's initial sepsis screen is negative. Care prior to arrival: None. 19:07 Method Of Arrival: Ambulatory 19:07 Acuity: COLIN 2 aj Triage Assessment: 19:10 General: Appears in no apparent distress. uncomfortable, Behavior is anxious, crying. aj Pain: Denies pain. Neuro: Level of Consciousness is awake, alert, obeys commands, Oriented to person, place, time, situation, Appropriate for age. Cardiovascular: Reports diaphoresis, lightheadedness, palpitations, shortness of breath, Capillary refill < 3 seconds in bilateral fingers Patient's skin is warm and dry. Respiratory: Airway is patent Respiratory effort is even, unlabored, Respiratory pattern is regular, symmetrical. GI: Reports diarrhea. Derm: Skin is intact, is healthy with good turgor, Skin is pink, warm \\T\\ dry. normal. [employer]PERVIS[employer] FABRICATION: 19:10 LMP 04/12/2018 aj Historical: - Allergies: 19:10 No Known Allergies; aj - Home Meds: 19:10 None [Active]; aj - PMHx: 19:10 Hypertension; aj - PSHx: 19:10 Cholecystectomy; aj - Immunization history:: Adult Immunizations up to date. - Social history:: Smoking status: Patient/guardian denies using tobacco. - Ebola Screening: : Patient negative for fever greater than or equal to 101.5 degrees Fahrenheit, and additional compatible Ebola Virus Disease symptoms Patient denies exposure to infectious person Patient denies travel to an Ebola-affected area in the 21 days before illness onset No symptoms or risks identified at this time. Screenin:10 Abuse screen: Denies threats or abuse. Denies injuries from another. Nutritional cc3 screening: No deficits noted. Tuberculosis screening: No symptoms or risk factors identified. Fall Risk Ambulatory Aid- None/Bed Rest/Nurse Assist (0 pts). Gait- Normal/Bed Rest/Wheelchair (0 pts) Mental Status- Oriented to own ability (0 pts). Assessment: 19:15 General: see triage assessment. cc3 19:15 Pain: Pain does not radiate. Quality of pain is described as heavy, Pain began cc3 intermittent several days back. 20:08 Reassessment: Patient appears in no apparent distress at this time. Patient and/or cc3 family updated on plan of care and expected duration. Pain level reassessed. Patient is alert, oriented x 3, equal unlabored respirations, skin warm/dry/pink. 21:20 Reassessment: Patient appears in no apparent distress at this time. Patient and/or cc3 family updated on plan of care and expected duration. Pain level reassessed. Patient is alert, oriented x 3, equal unlabored respirations, skin warm/dry/pink. Patient came back from CT scan department. 22:30 Reassessment: Patient appears in no apparent distress at this time. Patient and/or cc3 family updated on plan of care and expected duration. Pain level reassessed. Patient is alert, oriented x 3, equal unlabored respirations, skin warm/dry/pink. 23:45 Reassessment: Patient appears in no apparent distress at this time. Patient and/or cc3 family updated on plan of care and expected duration. Pain level reassessed. Patient is alert, oriented x 3, equal unlabored respirations, skin warm/dry/pink. 04/17 00:43 Reassessment: Patient appears in no apparent distress at this time. Patient and/or cc3 family updated on plan of care and expected duration. Pain level reassessed. Patient is alert, oriented x 3, equal unlabored respirations, skin warm/dry/pink. Dr. Means discharged the patient home with prescription given. IV cannula removed and patient left ER vitally stable by wheelchair with her family. Vital Signs: 04/16 19:10 BP 151 / 104; Pulse 146; Resp 20; Temp 98.7; Pulse Ox 97% on R/A; Weight 95.71 kg; aj Height 5 ft. 4 in. (162.56 cm); 19:15 BP 135 / 99; Pulse 136; Resp 20 S; Pulse Ox 97% on R/A; cc3 20:08 BP 138 / 90; Pulse 105; Resp 20 S; Pulse Ox 100% on R/A; cc3 21:33 BP 120 / 79; Pulse 113; Resp 15 S; Pulse Ox 98% on R/A; cc3 22:45 BP 123 / 86; Pulse 105; Resp 16 S; Pulse Ox 99% on R/A; cc3 23:30 BP 124 / 80; Pulse 104; Resp 19 S; Pulse Ox 98% on R/A; cc3 04/17 00:30 BP 112 / 83; Pulse 103; Resp 17 S; Pulse Ox 98% on R/A; Pain 0/10; cc3 04/16 19:10 Body Mass Index 36.22 (95.71 kg, 162.56 cm) aj ED Course: 04/16 19:02 Patient arrived in ED. am2 19:02 Nitin Velasquez MD is Private Physician. am2 19:09 Triage completed. aj 19:10 Arm band placed on right wrist. Patient placed in an exam room. aj 19:15 Patient has correct armband on for positive identification. Placed in gown. Bed in low cc3 position. Call light in reach. insulation board coater operator on. Pulse ox on. NIBP on. 19:15 Patient maintains SpO2 saturation greater than 95% on room air. cc3 19:24 Marvin Means MD is Attending Physician. gs 19:30 Inserted saline lock: 20 gauge in left antecubital area, using aseptic technique. Blood cc3 collected. 19:39 Lexy Sweeney is Primary Nurse. cc3 21:10 CT Chest For PE Angio In Process Unspecified. EDMS 21:45 XRAY Chest (1 view) In Process Unspecified. EDMS 04/17 00:45 No provider procedures requiring assistance completed. IV discontinued, intact, cc3 bleeding controlled, No redness/swelling at site. Pressure dressing applied. Administered Medications: 04/16 19:45 Drug: NS 0.9% 1000 ml Route: IV; Rate: 1 bolus; Site: left antecubital; cc3 21:00 Follow up: Response: No adverse reaction; IV Status: Completed infusion; IV Intake: cc3 1000ml 04/17 00:25 Drug: Metoprolol 25 mg Route: PO; cc3 00:43 Follow up: Response: No adverse reaction cc3 Intake: 04/16 21:00 IV: 1000ml; Total: 1000ml. cc3 Outcome: 04/17 00:13 Discharge ordered by . 00:42 Discharged to home via wheelchair, with family. cc3 00:42 Condition: stable 00:42 Discharge instructions given to patient, family, Instructed on discharge instructions, follow up and referral plans. medication usage, Demonstrated understanding of instructions, follow-up care, medications, Prescriptions given X 1. 00:43 Patient left the ED. cc3 Signatures: Dispatcher [employer] EDMS Opal Almaraz RN RN aj Moreno, Amanda am2 Starr, Gregory, MD MD gs Cordel, Charlene cc3 Corrections: (The following items were deleted from the chart) 04/16 21:39 19:15 Pain: Pain does not radiate. Pain began intermittent several days back cc3 cc3
[2018-04-17] MEDS ORDERED: METOPROLOL TAR 25 MG TAB ONE (00:33)
[2018-04-17 00:48] VITALS: TEMP 98.7
[2018-04-17 00:52] VITALS: BP 123/86; O2SAT 99
--- NOTE | 2018-04-18 10:11 | EKG ---
Test Date: 2018-04-16 Test Time: 19:24:31 Freezing Room Worker: SRI MEASUREMENT RESULTS: Intervals: Rate: 138 MN: 128 QRSD: 68 QT: 352 QTc: 533 [place]: P: 37 MN: 128 QRS: 12 T: 23 INTERPRETIVE STATEMENTS: Sinus tachycardia T wave abnormality, consider inferolateral ischemia Abnormal ECG Compared to ECG 04/13/2018 17:30:24 T-wave abnormality now present Possible ischemia now present Sinus rhythm no longer present Electronically Signed On 04-18-18 10:10:59 CDT by Gurdeep Herman
== END 2018-04-17 00:43 | disposition home or self-care (01) ==
LOC: ER 19:01
DX: I48.3 Typical atrial flutter (principal); I10 Essential (primary) hypertension
CPT/HCPCS: 36415; 71045; 71275; 80048; 80076; 80307; 81003; 81025; 83690; 83735; 83880; 84484; 85025; 85610; 93005; 96360; 99285; J7030; Q9967

== ENCOUNTER 2018-04-17 23:03 | Observation (INO) | payer OTHER ==
[2018-04-18] LABS: Absolute Lymphocytes (CBC) 2.3 K/uL (0.7-4.9); Absolute Monocytes 0.5 K/uL (0.1-1.3); Absolute Neutrophil 3.7 K/uL (1.8-8.0); Basophils % 0.7 % (0-1.3); Eosinophils % 1.7 % (0-4.4); Hematocrit 40.2 % (36.0-45.0); Lymphocytes % 35.1 % (15.3-44.8); MCH 29.2 pg (27.0-35.0); MCV 85.6 fL (80-100); Monocytes % 7.1 % (3.3-12.3)
[2018-04-18 00:13] LABS: BUN Blood Urea Nitrogen 12 mg/dL (7-18); Bicarbonate 22 mmol/L (21-32); Glucose Level 82 mg/dL (74-106); Potassium 3.9 mmol/L (3.5-5.1); Sodium Level 140 mmol/L (136-145)
--- NOTE | 2018-04-18 01:01 | ER ---
Nurse's Notes [facility] Name: Regina Gonzalez Age: 22 yrs Sex: Female : 1995 Arrival Date: 04/17/2018 Time: 23:04 Bed 14 Private MD: Diagnosis: Palpitations Presentation: 04/17 23:10 Presenting complaint: Patient states: that she continues to have on and off chest pain, fc dizziness and feeling light headed. Has been seen 3 times in the past 5 days. Is currently not taking any of the medications that had been prescribed for her including the triamit/hctz 37.5/25 mg. Transition of care: patient was not received from another setting of care. Onset of symptoms was April 2018. Risk Assessment: Do you want to hurt yourself or someone else? Patient reports no desire to harm self or others. Initial Sepsis Screen: Does the patient meet any 2 criteria? HR > 90 bpm. Yes Does the patient have a suspected source of infection? No. Patient's initial sepsis screen is negative. Care prior to arrival: None. 23:10 Method Of Arrival: Ambulatory 23:10 Acuity: COLIN 3 fc Triage Assessment: 23:15 General: Appears in no apparent distress. comfortable, Behavior is calm, cooperative, cc3 appropriate for age. Pain: Complains of pain in chest pain Quality of pain is described as heavy, Pain began since 5 days. EENT: No signs and/or symptoms were reported regarding the EENT system. Neuro: Level of Consciousness is awake, alert, obeys commands, Oriented to person, place, time, situation, Appropriate for age. Cardiovascular: Reports chest pain, lightheadedness, since 5 days. Respiratory: Airway is patent Respiratory effort is even, unlabored, Respiratory pattern is regular, symmetrical. GI: Abdomen is round non-distended. : No signs and/or symptoms were reported regarding the genitourinary system. Derm: No signs and/or symptoms reported regarding the dermatologic system. Musculoskeletal: Circulation, motion, and sensation intact. Range of motion: intact in all extremities. 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 - Social history:: Smoking status: Patient/guardian denies using tobacco. - Ebola Screening: : Patient negative for fever greater than or equal to 101.5 degrees Fahrenheit, and additional compatible Ebola Virus Disease symptoms Patient denies exposure to infectious person Patient denies travel to an Ebola-affected area in the 21 days before illness onset. Screenin/14 23:22 Abuse screen: Denies threats or abuse. Denies injuries from another. Nutritional fc screening: No deficits noted. Tuberculosis screening: No symptoms or risk factors identified. Fall Risk None identified. Assessment: 23:15 General: see triage assessment. cc3 23:15 Pain: Pain does not radiate. cc3 04/18 00:00 Reassessment: patient seen by Dr. Villarreal. cc3 01:01 Reassessment: Patient appears in no apparent distress at this time. Patient and/or cc3 family updated on plan of care and expected duration. Pain level reassessed. Patient is alert, oriented x 3, equal unlabored respirations, skin warm/dry/pink. patient for admission, awaiting admission orders. 02:11 Reassessment: Patient appears in no apparent distress at this time. Patient and/or cc3 family updated on plan of care and expected duration. Pain level reassessed. Patient is alert, oriented x 3, equal unlabored respirations, skin warm/dry/pink. Room available in 414, charge nurse Alicia called report to Irvin TAYLOR for continuity of care. 02:25 Reassessment: Patient left ER vitally stable by wheelchair with family escorted by ED cc3 kaushik Barnes for admission. Vital Signs: 04/17 23:10 BP 137 / 91; Pulse 93; Resp 18; Temp 98.6(O); Pulse Ox 99% on R/A; Weight 95.71 kg (R); fc Height 5 ft. 4 in. (162.56 cm) (R); Pain 0/10; 04/18 00:15 BP 115 / 81; Pulse 86; Resp 16 S; Pulse Ox 99% on R/A; cc3 01:22 BP 120 / 79; Pulse 82; Resp 15 S; Pulse Ox 98% on R/A; cc3 02:15 BP 128 / 89; Pulse 86; Resp 18 S; Pulse Ox 98% on R/A; cc3 04/17 23:10 Body Mass Index 36.22 (95.71 kg, 162.56 cm) ED Course: 04/17 23:04 Patient arrived in ED. ds1 23:09 Marvin Means MD is Attending Physician. gs 23:10 Arm band placed on Patient placed in an exam room, on a stretcher. fc 23:15 Patient maintains SpO2 saturation greater than 95% on room air. cc3 23:20 Triage completed. fc 23:22 Patient has correct armband on for positive identification. Bed in low position. Call fc light in reach. Pulse ox on. NIBP on. 23:22 No provider procedures requiring assistance completed. 04/18 00:04 Lexy Sweeney is Primary Nurse. cc3 00:33 Inserted saline lock: 20 gauge in left upper arm, using aseptic technique. Missed mw2 attempt(s): 22 gauge in right antecubital area. Bleeding controlled, band aid applied, catheter tip intact. 01:01 Alexys Villarreal MD is Hospitalizing Provider. gs 02:12 Patient admitted, IV remains in place. Administered Medications: 01:10 Drug: NS 0.9% 1000 ml Route: IV; Rate: 125 ml/hr; Site: left upper arm; cc3 02:15 Follow up: Response: No adverse reaction; IV Status: Infusion continued upon admission cc3 Outcome: 01:01 Decision to Hospitalize by Provider. gs 02:11 Admitted to [facility] by [facility], via wheelchair, room 414, with chart, Report fc called to Irvin TAYLOR 02:11 Condition: good 02:11 Discharge instructions given to patient, family, Instructed on the need for admit, Demonstrated understanding of instructions. 02:27 Patient left the ED. cc3 Signatures: Alicia Lepe RN RN Debra Loyola ds1 Marvin Means MD MD gs Peter Ramirez mw2 Lexy Sweeney cc3
--- NOTE | 2018-04-18 01:01 | EDPHYS ---
Physician Documentation [facility] Name: Regina Gonzalez Age: 22 yrs Sex: Female : 1995 Arrival Date: 04/17/2018 Time: 23:04 Bed 14 Private MD: ED Physician Marvin Means HPI: 04/18 00:58 This 22 yrs old Other Female presents to ER via Ambulatory with complaints of Chest gs Tightness, Dizziness. 00:58 The patient or guardian reports chest pain that is located primarily in the anterior gs chest wall. Associated signs and symptoms: Pertinent positives: palpitations. The chest pain is described as a heaviness. Duration: The patient or guardian reports multiple episodes, that are intermittent, that wax and wane, with no pattern. Modifying factors: The symptoms are alleviated by nothing. the symptoms are aggravated by nothing. Severity of pain: At its worst the pain was mild in the emergency department the pain is unchanged. The patient has experienced similar episodes in the past, several times. 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 - Social history:: Smoking status: Patient/guardian denies using tobacco. - Ebola Screening: : Patient negative for fever greater than or equal to 101.5 degrees Fahrenheit, and additional compatible Ebola Virus Disease symptoms Patient denies exposure to infectious person Patient denies travel to an Ebola-affected area in the 21 days before illness onset. ROS: 00:58 All other systems are negative. gs 00:58 Neuro: Positive for near syncope. gs Exam: 00:58 Head/Face: Normocephalic, atraumatic. Eyes: Pupils equal round and reactive to light, gs extra-ocular motions intact. Lids and lashes normal. Conjunctiva and sclera are non-icteric and not injected. Cornea within normal limits. Periorbital areas with no swelling, redness, or edema. ENT: Nares patent. No nasal discharge, no septal abnormalities noted. Tympanic membranes are normal and external auditory canals are clear. Oropharynx with no redness, swelling, or masses, exudates, or evidence of obstruction, uvula midline. Mucous membranes moist. Neck: Trachea midline, no thyromegaly or masses palpated, and no cervical lymphadenopathy. Supple, full range of motion without nuchal rigidity, or vertebral point tenderness. No Meningismus. Chest/axilla: Normal chest wall appearance and motion. Nontender with no deformity. No lesions are appreciated. Cardiovascular: Regular rate and rhythm with a normal S1 and S2. No gallops, murmurs, or rubs. Normal PMI, no JVD. No pulse deficits. Respiratory: Lungs have equal breath sounds bilaterally, clear to auscultation and percussion. No rales, rhonchi or wheezes noted. No increased work of breathing, no retractions or nasal flaring. Abdomen/GI: Soft, non-tender, with normal bowel sounds. No distension or tympany. No guarding or rebound. No evidence of tenderness throughout. Back: No spinal tenderness. No costovertebral tenderness. Full range of motion. Skin: Warm, dry with normal turgor. Normal color with no rashes, no lesions, and no evidence of cellulitis. MS/ Extremity: Pulses equal, no cyanosis. Neurovascular intact. Full, normal range of motion. Neuro: Awake and alert, GCS 15, oriented to person, place, time, and situation. Cranial nerves II-XII grossly intact. Motor strength 5/5 in all extremities. Sensory grossly intact. Cerebellar exam normal. Normal gait. 00:58 Constitutional: The patient appears alert, awake. 00:58 ECG was reviewed by the Attending Physician. Vital Signs: 04/17 23:10 BP 137 / 91; Pulse 93; Resp 18; Temp 98.6(O); Pulse Ox 99% on R/A; Weight 95.71 kg (R); Height 5 ft. 4 in. (162.56 cm) (R); Pain 0/10; 04/18 00:15 BP 115 / 81; Pulse 86; Resp 16 S; Pulse Ox 99% on R/A; cc3 01:22 BP 120 / 79; Pulse 82; Resp 15 S; Pulse Ox 98% on R/A; cc3 02:15 BP 128 / 89; Pulse 86; Resp 18 S; Pulse Ox 98% on R/A; cc3 04/17 23:10 Body Mass Index 36.22 (95.71 kg, 162.56 cm) MDM: 00:36 Patient medically screened. 00:58 Differential diagnosis: abnormal EKG, anxiety, chest wall pain, arrythmia. Data gs reviewed: vital signs, nurses notes. 04/17 23:09 Order name: CBC with Diff; Complete Time: 01:01 04/17 23:09 Order name: Basic Metabolic Panel; Complete Time: :42 04/17 23:09 Order name: EKG - Nurse/Tech; Complete Time: 00:05 04/18 01:12 Order name: Troponin I; Complete Time: :42 EDMS EC:58 Rate is 79 beats/min. Rhythm is regular. MA interval is normal. QRS interval is normal. gs T waves are Normal. No ST changes noted. Clinical impression: Normal ECG. Interpreted by me. Administered Medications: 01:10 Drug: NS 0.9% 1000 ml Route: IV; Rate: 125 ml/hr; Site: left upper arm; cc3 02:15 Follow up: Response: No adverse reaction; IV Status: Infusion continued upon admission cc3 Disposition: 04/18/18 01:01 Hospitalization ordered by Alexys Villarreal for Observation. Preliminary diagnosis is Palpitations. - Bed requested for Telemetry/MedSurg (observation). - Status is Observation. cc3 - Condition is Stable. - Problem is new. - Symptoms have improved. UTI on Admission? No Signatures: Dispatcher [employer] EDMS Alicia Lepe RN RN fc Garcia, Cindy, RN RN cg Starr, Gregory, MD MD Lexy Sweeney cc3 Corrections: (The following items were deleted from the chart) 01:12 01:02 TROPONIN I+C.LAB.BRZ ordered. EDMS EDMS 01:27 01:01 Hospitalization Ordered by Alexys Villarreal MD for Observation. Preliminary cg diagnosis is Palpitations. Bed requested for Telemetry/MedSurg (observation). Status is Observation. Condition is Stable. Problem is new. Symptoms have improved. UTI on Admission? No. 02:27 01:27 04/18/2018 01:01 Hospitalization Ordered by Alexys Villarreal MD for Observation. cc3 Preliminary diagnosis is Palpitations. Bed requested for Telemetry/MedSurg (observation). Status is Observation. Condition is Stable. Problem is new. Symptoms have improved. UTI on Admission? No. cg
[2018-04-18] MEDS ORDERED: NA CHLORIDE 0.9% 1,000 ML ONE (01:15)
[2018-04-18 01:33] LABS: Troponin I < 0.02 ng/mL (0.0-0.045)
[2018-04-18] MEDS ORDERED: MORPHINE 2 MG/ML SYR IV PRN (01:40)
[2018-04-18] MEDS ORDERED: ACETAMINOPHEN 500 MG TAB PO PRN (01:40)
[2018-04-18] MEDS ORDERED: ONDANSETRON 4 MG/2 ML VIAL IV PRN (01:40)
[2018-04-18] MEDS ORDERED: ALPRAZOLAM 0.25 MG TABLET PO PRN (01:44)
[2018-04-18] MEDS: NA CHLORIDE 0.9% 1,000 ML IV SCH ×2 (03:09→17:12)
[2018-04-18 06:05] LABS: Absolute Lymphocytes (CBC) 2.1 K/uL (0.7-4.9); Absolute Monocytes 0.5 K/uL (0.1-1.3); Absolute Neutrophil 3.4 K/uL (1.8-8.0); Basophils % 0.4 % (0-1.3); Hematocrit 37.9 % (36.0-45.0); Lymphocytes % 34.6 % (15.3-44.8); MCH 29.4 pg (27.0-35.0); MCV 86.9 fL (80-100); MPV 8.5 fL (7.6-11.3); Monocytes % 7.4 % (3.3-12.3); RBC Red Blood Cell Count 4.36 M/uL (3.86-4.86)
[2018-04-18 06:23] LABS: ALT/SGPT 34 U/L (12-78); AST/SGOT 12 U/L (15-37); Albumin 3.8 g/dL (3.4-5.0); Alkaline Phosphatase 55 U/L (45-117); BUN Blood Urea Nitrogen 11 mg/dL (7-18); Bicarbonate 21 mmol/L (21-32); Bilirubin Total 0.4 mg/dL (0.2-1.0); Glucose Level 80 mg/dL (74-106); Potassium 3.6 mmol/L (3.5-5.1); Protein, Total 7.2 g/dL (6.4-8.2); Sodium Level 141 mmol/L (136-145); T3 Free 2.81 pg/mL (2.18-3.98); Thyroid Stimulating Hormone 0.682 uIU/mL (0.360-3.740)
[2018-04-18] MEDS ORDERED: MORPHINE 4 MG/ML SYR IV PRN (07:30)
[2018-04-18] MEDS ORDERED: LORazepam 2 MG/ML VIAL IV PRN (08:15)
--- NOTE | 2018-04-18 08:23 | P.HP ---
Certification for Inpatient Patient admitted to: Observation With expected LOS: <2 Midnights Patient will require the following post-hospital care: None Practitioner: I am a practitioner with admitting privileges, knowledge of patient current condition, hospital course, and medical plan of care. Services: Services provided to patient in accordance with Admission requirements found in Title 42 Section 412.3 of the Code of Federal Regulations Patient History Date of Service: 04/18/18 Reason for admission: Palpitations History of Present Illness: Patient is a 22-year-old female who is 2 months from our 1st . Patient did well during the . However, after the she has had issues with feeling faint. She says she has has not been able to get this feeling to go away. She has been drinking a lot of caffeinated beverages. It was found that she SVT during 1 of her visits to the emergency room this week. She has actually been to the emergency room on 4 different occasions this past week. Patient was admitted to the hospital for further evaluation and observation of her symptoms & for further workup. Allergies No Known Allergies Allergy (Verified 04/18/18 02:44) Home Medications: NK [No Home Meds] 04/18/18 - Past Medical/Surgical History Has patient received pneumonia vaccine in the past: No Diabetic: No -: hypertension -: palpitations -: heart murmur as a child -: Cholecystectomy - Family History Father Medical History: Diabetes Sister Medical History: Hypertension - Social History Smoking Status: Never smoker Alcohol use: No CD- Drugs: No Caffeine use: Yes Place of Residence: Home Review of Systems 10-point ROS is otherwise unremarkable Physical Examination - Vital Signs Temperature: 98.5 F Blood Pressure: 145/86 Pulse: 80 Respirations: 20 Pulse Ox (%): 100 - Physical Exam General: Alert, In no apparent distress, Oriented x3 HEENT: Atraumatic, PERRLA, Mucous membr. moist/pink, EOMI, Sclerae nonicteric Neck: Supple, 2+ carotid pulse no bruit, No LAD, Without JVD or thyroid abnormality Respiratory: Clear to auscultation bilaterally, Normal air movement Cardiovascular: Regular rate/rhythm, Normal S1 S2, No murmurs Gastrointestinal: Normal bowel sounds, Soft and benign, Non-distended, No tenderness Musculoskeletal: No clubbing, No swelling, No tenderness Integumentary: No rashes Neurological: Normal gait, Normal speech, Normal strength at 5/5 x4 extr, Normal tone, Sensation intact, Cranial nerves 3-12 intact, Normal affect Lymphatics: No axilla or inguinal lymphadenopathy - Studies Laboratory Data (last 24 hrs) 04/18/18 01:02: Troponin I Cancelled 04/17/18 22:44: Sodium 140, Potassium 3.9, BUN 12, Creatinine 0.60, Glucose 82, Troponin I < 0.02 04/17/18 22:44: WBC 6.7, Hgb 13.7, Hct 40.2, Plt Count 273 Assessment & Plan - Problems (Diagnosis) (1) Palpitations Current Visit: Yes Status: Acute (2) SVT (supraventricular tachycardia) Current Visit: Yes Status: Acute (3) Excessive caffeine intake Current Visit: Yes Status: Acute (4) Faint Current Visit: Yes Status: Acute (5) complication Current Visit: Yes Status: Acute - Plan Plan: 1. Gentle hydration 2. Check thyroid studies 3. Check echocardiogram 4. May add low-dose beta-amrit but will monitor her on telemetry prior to doing this as her blood pressure is stable 5. MRI of the brain 6. GI and DVT prophylaxis Discharge Plan: Home Plan to discharge in: 24 Hours - Advance Directives Does patient have a Living Will: No Does patient have a Durable POA for Healthcare: No - Code Status/Comfort Care Code Status Assessed: Yes Code Status: Full Code Critical Care: No Time Spent Managing PTS Care (In Minutes): 50
--- NOTE | 2018-04-18 09:56 | RAD REPORT ---
EXAM DESCRIPTION: RAD - Chest Pa And Lat (2 Views) - 04/18/2018 9:51 am CLINICAL HISTORY: Palpitations, a arrhythmia COMPARISON: April 16 TECHNIQUE: PA and lateral views of the chest were obtained. FINDINGS: The lungs are clear. No new or progressive lung parenchymal finding since earlier study. Heart size is normal and central vasculature is within normal limits. No pleural effusion or pneumot horax seen. No acute bony finding noted. No aortic abnormality. No interval change identified. IMPRESSION: No acute cardiopulmonary process.
--- NOTE | 2018-04-18 10:03 | EKG ---
Test Date: 2018-04-18 Test Time: 00:00:54 Infection Preventionist: SALAS MEASUREMENT RESULTS: Intervals: Rate: 79 WI: 132 QRSD: 76 QT: 366 QTc: 419 [place]: P: 34 WI: 132 QRS: -1 T: 12 INTERPRETIVE STATEMENTS: Normal sinus rhythm Normal ECG Compared to ECG 04/16/2018 19:24:31 Sinus tachycardia no longer present T-wave abnormality no longer present Possible ischemia no longer present Electronically Signed On 04-18-18 10:02:06 CDT by Gurdeep Herman
--- NOTE | 2018-04-18 10:28 | RAD REPORT ---
EXAM DESCRIPTION: MRI - Brain Wo Cont - 04/18/2018 10:18 am CLINICAL HISTORY: Headache, dizziness COMPARISON: None. TECHNIQUE: Sagittal T1-weighted images were obtained along with axial PD, heavily T2-weighted and T2 -FLAIR images. Axial DWI and ADC mapping sequences were also obtained along with coronal heavily T2-w eighted images. FINDINGS: No intracranial hemorrhage, mass or acute infarction. There is no edema or shift of midlin e structures. No extra-axial fluid collections. Senior-matter/white matter junction is preserved. Signa l voids are seen as a normal finding in the major intracranial vessels. Mastoid air cells and paranasal sinuses are clear. IMPRESSION: Negative non-contrast MRI of the Brain.
[2018-04-18 12:04] LABS: Urine Appearance CLOUDY; Urine Blood NEGATIVE (NEG); Urine Color YELLOW; Urine Glucose NEGATIVE (NEG); Urine Protein NEGATIVE (NEG); Urine Specific Gravity >=1.030 (1.005-1.030); Urine Urobilinogen 0.2 mg/dL (0.2-1.0)
[2018-04-18 12:07] LABS: Specific Gravity > 1.030 (1.005-1.030)
[2018-04-18 12:43] LABS: Urine Bilirubin NEGATIVE (NEG)
[2018-04-18 12:44] LABS: Urine Bacteria 20-50 /HPF (<20); Urine Culture Reflex Order REFLEXED; Urine Mucus MOD /HPF (NONE SEEN); Urine RBC NONE SEEN /HPF (NONE SEEN)
--- NOTE | 2018-04-18 15:28 | ECHO ---
HEIGHT: ft in WEIGHT: lb oz DATE OF STUDY: 04/18/[address]: Alexys Villarreal MD 2-DIMENSIONAL: YES M.MODE: YES DOPPLER: YES COLOR FLOW: YES TDS: NO PORTABLE: NO DEFINITY: NO BUBBLE STUDY: NO DIAGNOSIS: PALPITATIONS CARDIAC HISTORY: CATHERIZATION: NO SURGERY: NO PROSTHETIC VALVE: NO PACEMAKER: NO MEASUREMENTS (cm) DIASTOLIC (NORMALS) SYSTOLIC (NORMALS) IVSd 0.9 (0.6-1.2) LA Diam 2.4 (1.9-4.0) LVEF 72% LVIDd 2.9 (3.5-5.7) LVIDs 1.7 (2.0-3.5) %FS 40% LVPWd 0.8 (0.6-1.2) Ao Diam 2.4 (2.0-3.7) 2 DIMENSIONAL ASSESSMENT: RIGHT ATRIUM: NORMAL LEFT ATRIUM: NORMAL RIGHT VENTRICLE: NORMAL LEFT VENTRICLE: NORMAL TRICUSPID VALVE: NORMAL MITRAL VALVE: NORMAL PULMONIC VALVE: NORMAL AORTIC VALVE: NORMAL PERICARDIAL EFFUSION: NONE AORTIC ROOT: NORMAL LEFT VENTRICULAR WALL MOTION: NORMAL DOPPLER/COLOR FLOW: NORMAL COMMENTS: NORMAL 2D ECHOCARDIOGRAM WITH DOPPLER. TECHNOLOGIST: Michael VAUGHAN
--- NOTE | 2018-04-18 15:45 | EKG ---
Test Date: 2018-04-18 Test Time: 13:44:19 Superintendent Laundry: DESTINI MEASUREMENT RESULTS: Intervals: Rate: 90 [place]: 132 QRSD: 76 QT: 352 QTc: 430 [place]: P: 34 [place]: 132 QRS: 13 T: 21 INTERPRETIVE STATEMENTS: Normal sinus rhythm Normal ECG Compared to ECG 04/18/2018 00:00:54 No significant changes Electronically Signed On 04-18-18 15:44:33 CDT by Gurdeep Herman
--- NOTE | 2018-04-19 08:42 | RAD REPORT ---
EXAM DESCRIPTION: RAD - Chest Pa And Lat (2 Views) - 04/19/2018 6:53 am CLINICAL HISTORY: palpitations Chest pain. COMPARISON: Chest Pa And Lat (2 Views) dated 04/18/2018; Chest Single View dated 04/16/2018; Chest S mac View dated 04/13/2018; Chest Single View dated 04/27/2017 FINDINGS: The lungs are clear. The heart is normal in size. No displaced fractures. IMPRESSION: No acute or concerning finding suspected.
[2018-04-19 08:50] LABS: Barbiturates NEGATIVE (NEGATIVE); Benzodiazepines POSITIVE (NEGATIVE); Cocaine NEGATIVE (NEGATIVE); METHAMPHETAM NEGATIVE (NEGATIVE); Methadone NEGATIVE (NEGATIVE); Opiates NEGATIVE (NEGATIVE); Phencyclidine NEGATIVE (NEGATIVE); THC Cannibis NEGATIVE (NEGATIVE)
[2018-04-19] MEDS ORDERED: METOPROLOL TAR 25 MG TAB PO ONE (12:27)
[2018-04-19 14:18] VITALS: BP 140/81; TEMP 97.6; O2SAT 99; BMI 36.2
--- NOTE | 2018-04-20 05:08 | DS ---
Date of Discharge: 04/19/2018 Discharge Diagnoses: 1.Acute dehydration. 2.Palpitation. 3.Supraventricular tachycardia. 4.Excessive caffeine intake. 5.Generalized weakness. 6.Recently with complication. 7.Obesity. Hospital Course: The patient is a 22-year-old female who is 2 months from her first pregn nick. The patient has been feeling weak since then and has been drinking a lot of caffeinated bevera ges. Has been to the ER for different occasions this month, found to have SVT during one of her visi ts. The patient had been discharged on metoprolol and HCTZ. Her blood pressure has been running in the 140s to 120s here in the hospital. The patient had workup done to elucidate her tachycardia. Sh bon was also on IV fluids for rehydration following a bout of viral gastroenteritis with multiple episo marlen of diarrhea, nausea, and vomiting. The patient's TSH and T4-T3 were within normal limits. She d id not have any electrolyte abnormalities. She was not anemic. Her hemoglobin is around her baselin e. Her UDS was only positive for benzodiazepines. However, this was after she was given medication in the hospital. The patient does report taking Xanax at home for anxiety given by her primary care physician, Dr. Velasquez. Her UA and urine culture showed mixed brooks. C. diff assay was checked, whic h was negative. The patient's diarrhea had resolved. The patient is otherwise doing well. Orthosta tic vital signs were checked which were negative. Mainly her symptoms of tachycardia and lightheaded ness appear with positional changes. The patient was counseled to wait and sit a few minutes before jumping out of bed. She mentions that she felt lightheaded and dizzy and could feel palpitations whe n she jumped out of bed to go use her restroom this morning. She voiced understanding. An echocardi ogram was also done, which showed EF of 72% without any other abnormalities. Chest x-ray was clear. MRI of the brain was also done, did not show any masses, hemorrhage, or any acute infarction. If th e patient continues to have uncontrolled tachycardia along with elevated blood pressure, may need to have further outpatient workup such as CT scan of the abdomen to rule out pheochromocytoma; however, this was very unlikely as patient's blood pressure has not showed more than 140s systolic. Heart rat e has not gone up further than 120s to 130s and that is only with exertion. The patient also had a C T angio chest done on 04/16/2018 during 1 of her ER visits, did not show any PE. No effusions. The patient was feeling significantly better. She was asymptomatic. The patient was counseled extensive ly on weight loss as well as low caffeine intake. The patient voiced understanding. Diet: Calorie-restricted diet. Activity: As tolerated. Medications: As per medication reconciliation list. She will continue metoprolol, however, at her l ower dose of 12.5 b.i.d. The patient to hold medication for systolic less than 120, heart rate less than 70. The patient to keep a log of her blood pressure and heart rate and provided to her primary care physician for followup visit within 1 week. Return to ER for worsening condition. Followup: With primary care physician in 2 to 3 days. Physical Examination: General: Awake, alert, oriented, no acute distress. Obese female. CV: S1, S2. No murmurs. Respiratory: Moving air well bilaterally. Abdomen: Soft, nontender, nondistended. Positive bowel sounds. Extremities: No clubbing, cyanosis, or edema. Neuro: Nonfocal. SA/MODL Voice ID: [id number] Report ID: [id number]
== END 2018-04-19 14:23 | disposition home or self-care (01) ==
LOC: ER 23:03 → ERHOLD 04-18 01:07 → 4TH 04-18 01:58
PROVIDERS: ADMIT Hospitalist; ATTEND Hospitalist
DX: E86.0 Dehydration (principal); R00.2 Palpitations; I47.1 Supraventricular tachycardia; F15.99 Other stimulant use, unspecified with unspecified stimulant-induced disorder; R53.1 Weakness; E66.9 Obesity, unspecified; Z68.36 Body mass index [BMI] 36.0-36.9, adult
CPT/HCPCS: 36415; 70551; 71046; 80048; 80053; 80307; 81001; 81025; 83036; 84439; 84443; 84481; 84484; 85025; 87077; 87086; 87088; 87186; 87493; 93005; 93306; 96360; 99285; G0378; J2270; J2405; J7030

== ENCOUNTER 2018-06-25 20:17 | Emergency (ER) | payer OTHER ==
--- NOTE | 2018-06-25 22:06 | RAD REPORT ---
EXAM DESCRIPTION: RAD - Chest Single View - 06/25/2018 9:50 pm CLINICAL HISTORY: Chest pain COMPARISON: April 19 TECHNIQUE: AP portable chest image was obtained 2145 hours . FINDINGS: Lungs are clear. Heart and vasculature are normal. No measurable pleural effusion and no p neumothorax. No acute bony abnormality seen. No acute aortic findings suspected. IMPRESSION: No acute cardiopulmonary process. No significant interval change.
[2018-06-25 22:37] LABS: Absolute Lymphocytes (CBC) 2.3 K/uL (0.7-4.9); Absolute Monocytes 0.5 K/uL (0.1-1.3); Absolute Neutrophil 5.9 K/uL (1.8-8.0); Basophils % 0.5 % (0-1.3); Eosinophils % 0.8 % (0-4.4); Hematocrit 41.4 % (36.0-45.0); MPV 9.1 fL (7.6-11.3); Monocytes % 5.3 % (3.3-12.3); RBC Red Blood Cell Count 4.68 M/uL (3.86-4.86)
[2018-06-25 22:46] LABS: Protime INR 1.12
[2018-06-25 22:56] LABS: ALT/SGPT 24 U/L (12-78); AST/SGOT 11 U/L (15-37); Albumin 4.3 g/dL (3.4-5.0); Alkaline Phosphatase 66 U/L (45-117); BUN Blood Urea Nitrogen 13 mg/dL (7-18); Bicarbonate 22 mmol/L (21-32); Bilirubin Direct < 0.1 mg/dL (0-0.2); Bilirubin Total 0.3 mg/dL (0.2-1.0); Glucose Level 84 mg/dL (74-106); Magnesium 2.3 mg/dL (1.8-2.4); NT PRO-BNP 20 pg/mL (<125); Potassium 3.7 mmol/L (3.5-5.1); Protein, Total 8.3 g/dL (6.4-8.2); Sodium Level 140 mmol/L (136-145); Troponin (Emerg Dept Use Only) < 0.02 ng/mL (0.0-0.045)
[2018-06-25] MEDS ORDERED: LORazepam 2 MG/ML VIAL ONE (23:28)
[2018-06-25 23:59] LABS: Urine Blood NEGATIVE (NEG); Urine Glucose NEGATIVE (NEG); Urine Protein NEGATIVE (NEG); Urine Specific Gravity 1.015 (1.005-1.030); Urine pH 8.5 (5.0-7.0)
[2018-06-26] MEDS ORDERED: KETOROLAC 30 MG/ML INJ ONE (00:39)
--- NOTE | 2018-06-26 01:02 | ER ---
Nurse's Notes [facility] Name: Regina Gonzalez Age: 22 yrs Sex: Female : 1995 Arrival Date: 06/25/2018 Time: 20:28 Bed 13 Private MD: Diagnosis: Shortness of breath Presentation: 06/25 20:15 Presenting complaint: EMS states: anxiety, shortness of breath and chest tightness cc3 since this evening. Transition of care: patient was not received from another setting of care. Onset of symptoms was June 25, 2018. Risk Assessment: Do you want to hurt yourself or someone else? Patient reports no desire to harm self or others. Initial Sepsis Screen: Does the patient meet any 2 criteria? No. Patient's initial sepsis screen is negative. Does the patient have a suspected source of infection? No. Patient's initial sepsis screen is negative. Care prior to arrival: None. 20:15 Method Of Arrival: EMS: [facility] cc3 20:15 Acuity: COLIN 3 cc3 Triage Assessment: 20:48 General: Appears in no apparent distress. comfortable, Behavior is calm, cooperative, cc3 appropriate for age. Pain: Complains of pain in chest Quality of pain is described as heavy. 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 - Social history:: Smoking status: Patient/guardian denies using tobacco, never smoked. - Ebola Screening: : No symptoms or risks identified at this time. Screenin:48 Abuse screen: Denies threats or abuse. Denies injuries from another. Nutritional cc3 screening: No deficits noted. Tuberculosis screening: No symptoms or risk factors identified. Fall Risk Ambulatory Aid- None/Bed Rest/Nurse Assist (0 pts). Gait- Normal/Bed Rest/Wheelchair (0 pts) Mental Status- Oriented to own ability (0 pts). Assessment: 21:20 Reassessment: Patient appears in no apparent distress at this time. Patient and/or cc3 family updated on plan of care and expected duration. Pain level reassessed. Patient is alert, oriented x 3, equal unlabored respirations, skin warm/dry/pink. 22:30 Reassessment: Patient appears in no apparent distress at this time. Patient and/or cc3 family updated on plan of care and expected duration. Pain level reassessed. Patient is alert, oriented x 3, equal unlabored respirations, skin warm/dry/pink. 23:15 Reassessment: Patient appears in no apparent distress at this time. Patient and/or cc3 family updated on plan of care and expected duration. Pain level reassessed. Patient is alert, oriented x 3, equal unlabored respirations, skin warm/dry/pink. 06/26 00:17 Reassessment: Patient appears in no apparent distress at this time. Patient and/or cc3 family updated on plan of care and expected duration. Pain level reassessed. Patient is alert, oriented x 3, equal unlabored respirations, skin warm/dry/pink. 01:10 Reassessment: Patient appears in no apparent distress at this time. Patient and/or cc3 family updated on plan of care and expected duration. Pain level reassessed. Patient is alert, oriented x 3, equal unlabored respirations, skin warm/dry/pink. MARYLU Lockhart discharged home the patient no prescription given. IV cannula removed and patient left ER vitally stable by wheelchair with family. Vital Signs: 06/25 20:15 BP 133 / 78; Pulse 84; Resp 20 S; Temp 97.6(O); Pulse Ox 100% on R/A; Weight 83.91 kg cc3 (R); Height 5 ft. 4 in. (162.56 cm) (R); 21:40 BP 133 / 96; Pulse 85; Resp 19 S; Pulse Ox 100% on R/A; cc3 22:25 BP 142 / 89; Pulse 83; Resp 20 S; Pulse Ox 100% on R/A; cc3 23:45 BP 120 / 73; Pulse 85; Resp 19 S; Pulse Ox 100% on R/A; cc3 12/23 00:45 BP 128 / 73; Pulse 88; Resp 20 S; Pulse Ox 100% on R/A; cc3 06/25 20:15 Body Mass Index 31.75 (83.91 kg, 162.56 cm) cc3 ED Course: 06/25 20:28 Patient arrived in ED. 20:48 Lexy Sweeney is Primary Nurse. cc3 20:48 Arm band placed on right wrist. cc3 20:48 Patient has correct armband on for positive identification. Bed in low position. Call cc3 light in reach. Side rails up X 1. car shakeout operator on. Pulse ox on. NIBP on. 20:55 Triage completed. cc3 21:06 Richy Abraham PA is PHCP. jr8 21:06 Toi Rodriguez MD is Attending Physician. jr8 21:48 XRAY Chest (1 view) Sent. mw2 21:50 XRAY Chest (1 view) In Process Unspecified. EDMS 22:25 Initial lab(s) drawn, by nd, sent to lab. Inserted saline lock: 22 gauge in right fc antecubital area, using aseptic technique. Blood collected. 06/26 01:10 No provider procedures requiring assistance completed. IV discontinued, intact, cc3 bleeding controlled, No redness/swelling at site. Pressure dressing applied. Administered Medications: 06/25 23:25 Drug: Ativan 1 mg Route: IVP; Site: right antecubital; cc3 06/26 00:00 Follow up: Response: No adverse reaction; Anxiety decreased cc3 00:38 Drug: TORadol 30 mg Route: IVP; Site: right antecubital; mg2 01:10 Follow up: Response: No adverse reaction; Pain is decreased cc3 Outcome: 01:02 Discharge ordered by . jr8 01:10 Discharged to home via wheelchair, with friend. cc3 01:10 Condition: stable 01:10 Discharge instructions given to patient, Instructed on discharge instructions, follow up and referral plans. Demonstrated understanding of instructions, follow-up care. 01:20 Patient left the ED. cc3 Signatures: Dispatcher [employer] EDMS Alicia Lepe RN RN Richy Abraham PA PA jr8 Peter Ramirez mw2 Alex Tapia RN RN [facility] Lexy Sweeney cc3
--- NOTE | 2018-06-26 01:02 | EDPHYS ---
Physician Documentation [facility] Name: Regina Gonzalez Age: 22 yrs Sex: Female : 1995 Arrival Date: 06/25/2018 Time: 20:28 Bed 13 Private MD: ED Physician Toi Rodriguez HPI: 06/25 22:10 This 22 yrs old Other Female presents to ER via EMS with complaints of Anxiety, jr8 shortness of breath. 22:10 The patient has shortness of breath at rest. Onset: The symptoms/episode began/occurred jr8 acutely, today. Duration: The symptoms are continuous. The patient's shortness of breath has no apparent modifying factors. Associated signs and symptoms: Pertinent positives: dizziness, nausea. Severity of symptoms: At their worst the symptoms were moderate in the emergency department the symptoms have improved. The patient has experienced similar episodes in the past, a few times. The patient has not recently seen a physician. history of anxiety. Was told in past that it was panic attacks. Had seen [employer] recently for possible heart dysrhythmia but was ruled out . 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 - Social history:: Smoking status: Patient/guardian denies using tobacco, never smoked. - Ebola Screening: : No symptoms or risks identified at this time. ROS: 22:10 Eyes: Negative for injury, pain, redness, and discharge, ENT: Negative for injury, jr8 pain, and discharge, Neck: Negative for injury, pain, and swelling, Cardiovascular: Negative for chest pain, palpitations, and edema, Abdomen/GI: Negative for abdominal pain, nausea, vomiting, diarrhea, and constipation, Back: Negative for injury and pain, MS/Extremity: Negative for injury and deformity, Skin: Negative for injury, rash, and discoloration. 22:10 Respiratory: Positive for shortness of breath, Negative for cough, dyspnea on exertion, pleurisy, sputum production, wheezing. 22:10 Neuro: Positive for dizziness, Negative for altered mental status, gait disturbance, headache, hearing loss, loss of consciousness, numbness, seizure activity, speech changes, syncope, near syncope, tingling, tinnitus, tremor, visual changes, weakness. Exam: 22:10 Eyes: Pupils equal round and reactive to light, extra-ocular motions intact. Lids and jr8 lashes normal. Conjunctiva and sclera are non-icteric and not injected. Cornea within normal limits. Periorbital areas with no swelling, redness, or edema. ENT: Nares patent. No nasal discharge, no septal abnormalities noted. Tympanic membranes are normal and external auditory canals are clear. Oropharynx with no redness, swelling, or masses, exudates, or evidence of obstruction, uvula midline. Mucous membranes moist. Neck: Trachea midline, no thyromegaly or masses palpated, and no cervical lymphadenopathy. Supple, full range of motion without nuchal rigidity, or vertebral point tenderness. No Meningismus. Cardiovascular: Regular rate and rhythm with a normal S1 and S2. No gallops, murmurs, or rubs. Normal PMI, no JVD. No pulse deficits. Respiratory: Lungs have equal breath sounds bilaterally, clear to auscultation and percussion. No rales, rhonchi or wheezes noted. No increased work of breathing, no retractions or nasal flaring. Abdomen/GI: Soft, non-tender, with normal bowel sounds. No distension or tympany. No guarding or rebound. No evidence of tenderness throughout. Back: No spinal tenderness. No costovertebral tenderness. Full range of motion. Skin: Warm, dry with normal turgor. Normal color with no rashes, no lesions, and no evidence of cellulitis. MS/ Extremity: Pulses equal, no cyanosis. Neurovascular intact. Full, normal range of motion. Neuro: Awake and alert, GCS 15, oriented to person, place, time, and situation. Cranial nerves II-XII grossly intact. Motor strength 5/5 in all extremities. Sensory grossly intact. Cerebellar exam normal. Normal gait. Vital Signs: 20:15 BP 133 / 78; Pulse 84; Resp 20 S; Temp 97.6(O); Pulse Ox 100% on R/A; Weight 83.91 kg cc3 (R); Height 5 ft. 4 in. (162.56 cm) (R); 21:40 BP 133 / 96; Pulse 85; Resp 19 S; Pulse Ox 100% on R/A; cc3 22:25 BP 142 / 89; Pulse 83; Resp 20 S; Pulse Ox 100% on R/A; cc3 23:45 BP 120 / 73; Pulse 85; Resp 19 S; Pulse Ox 100% on R/A; cc3 06/26 00:45 BP 128 / 73; Pulse 88; Resp 20 S; Pulse Ox 100% on R/A; 3 06/25 20:15 Body Mass Index 31.75 (83.91 kg, 162.56 cm) 3 MDM: 06/25 21:06 Patient medically screened. [facility] 06/26 00:59 The patient's pulmonary embolism risk score was calculated as follows: No Risks (0 [facility] Pts). Data reviewed: vital signs, nurses notes, lab test result(s), EKG, radiologic studies, plain films, and as a result, I will discharge patient. Data interpreted: Pulse oximetry: on room air is 100 %. Interpretation: normal. Counseling: I had a detailed discussion with the patient and/or guardian regarding: the historical points, exam findings, and any diagnostic results supporting the discharge/admit diagnosis, lab results, radiology results, the need for outpatient follow up, a family practitioner, to return to the emergency department if symptoms worsen or persist or if there are any questions or concerns that arise at home. Response to treatment: the patient's symptoms have mildly improved after treatment. ED course: No acute lab, ekg, or radiologic finding. Patient resting comfortably in exam room. Has maintained 100 % SPO2 while in ED. No acute concerning physical exam findings noted. Patient has no PE risk based on wells criteria and had negative DD. Patient still feels as if she cannot catch her breath. Explained to her in detail all our findings. No need for admission at this point. Patient good with this and would f/u for further assessment. Would come back if worse.. 06/25 21:36 Order name: Basic Metabolic Panel [facility] 06/25 21:36 Order name: CBC with Diff [facility] 06/25 21:36 Order name: LFT's [facility] 06/25 21:36 Order name: Magnesium; Complete Time: 22:58 [facility] 06/25 21:36 Order name: NT PRO-BNP; Complete Time: 22:58 [facility] 06/25 21:36 Order name: PT-INR; Complete Time: 22:49 [facility] 06/25 21:36 Order name: Troponin (emerg Dept Use Only); Complete Time: 22:58 [facility] 06/25 21:36 Order name: XRAY Chest (1 view); Complete Time: 22:15 [facility] 06/25 21:36 Order name: DD; Complete Time: 22:49 [facility] 06/25 21:37 Order name: Basic Metabolic Panel; Complete Time: 22:58 EDMS 06/25 21:37 Order name: CBC with Automated Diff; Complete Time: 22:49 EDMS 06/25 21:37 Order name: Liver (Hepatic) Function; Complete Time: 22:58 EDOR 06/25 23:06 Order name: Urine Dipstick--Ancillary (enter results); Complete Time: 00:05 gm 06/25 23:06 Order name: Urine --Ancillary (enter results); Complete Time: 00:05 gm 06/25 21:36 Order name: EKG; Complete Time: 21:38 [facility] 06/25 21:36 Order name: Cardiac monitoring; Complete Time: 21:46 [facility] 06/25 21:36 Order name: EKG - Nurse/Tech; Complete Time: 21:46 [facility] 06/25 21:36 Order name: IV Saline Lock; Complete Time: 23:29 [facility] 06/25 21:36 Order name: Labs collected and sent; Complete Time: 23:29 [facility] 06/25 21:36 Order name: O2 Per Protocol; Complete Time: 21:46 [facility] 06/25 21:36 Order name: O2 Sat Monitoring; Complete Time: 21:46 [facility] 06/25 21:36 Order name: Urine Test (obtain specimen); Complete Time: 23:10 [facility] 06/25 21:36 Order name: Urine Dipstick-Ancillary (obtain specimen); Complete Time: 23:10 [facility] Administered Medications: 06/25 23:25 Drug: Ativan 1 mg Route: IVP; Site: right antecubital; cc3 06/26 00:00 Follow up: Response: No adverse reaction; Anxiety decreased cc3 00:38 Drug: TORadol 30 mg Route: IVP; Site: right antecubital; mg2 01:10 Follow up: Response: No adverse reaction; Pain is decreased cc3 Disposition: 06/26/18 01:02 Discharged to Home. Impression: Shortness of breath. - Condition is Stable. - Discharge Instructions: Shortness of Breath. - Medication Reconciliation Form, Thank You Letter, Antibiotic Education, Prescription Opioid Use form. - Follow up: Private Physician; When: 2 - 3 days; Reason: Recheck today's complaints, Continuance of care, Re-evaluation by your physician. - Problem is new. - Symptoms have improved. Addendum: 07/05/2018 11:20 Co-signature as Attending Physician, Toi Rodriguez MD I agree with the assessment and c dao plan of care. Signatures: Dispatcher [employer] EDOR Toi Rodriguez MD MD cha Roszak, Josh, PA PA jr8 Alex Tapia RN RN mg2 Lexy Sweeney cc3 Corrections: (The following items were deleted from the chart) 06/26 01:20 01:02 06/26/2018 01:02 Discharged to Home. Impression: Shortness of breath. Condition cc3 is Stable. Forms are Medication Reconciliation Form, Thank You Letter, Antibiotic Education, Prescription Opioid Use. Follow up: Private Physician; When: 2 - 3 days; Reason: Recheck today's complaints, Continuance of care, Re-evaluation by your physician. Problem is new. Symptoms have improved. jr8
[2018-06-26 01:30] VITALS: O2SAT 100
[2018-06-26 01:33] VITALS: BP 128/73
--- NOTE | 2018-06-26 17:28 | EKG ---
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
== END 2018-06-26 01:20 | disposition home or self-care (01) ==
LOC: ER 20:17
DX: R06.02 Shortness of breath (principal); I10 Essential (primary) hypertension; Z79.899 Other long term (current) drug therapy
CPT/HCPCS: 36415; 71045; 80048; 80076; 81003; 81025; 83735; 83880; 84484; 85025; 85379; 85610; 93005; 96374; 96375; 99284